=== PATIENT | male | born 1985 | race African-American/Black ===

== ENCOUNTER 2017-12-12 23:02 | Emergency (ER) | payer MEDICAID ==
[~2017-12-12] VITALS: Ht 177.8 cm; Wt 75.0 kg
[2017-12-13 08:51] VITALS: BP 94/55
== END 2017-12-13 08:51 | disposition home or self-care (01) ==
LOC: ER 23:02
DX: S90.112A Contusion of left great toe without damage to nail, initial encounter (principal); E11.9 Type 2 diabetes mellitus without complications; W22.8XXA Striking against or struck by other objects, initial encounter; Y93.9 Activity, unspecified; Y92.9 Unspecified place or not applicable
CPT/HCPCS: 73630; 99284

== ENCOUNTER 2018-03-24 15:54 | Emergency (ER) | payer MEDICAID ==
[~2018-03-24] VITALS: Ht 175.3 cm; Wt 75.0 kg
[2018-03-24] MEDS ORDERED: ONDANSETRON HCL 4MG/2ML INJ IV STA (16:37)
[2018-03-24] MEDS ORDERED: SODIUM CHLORIDE 0.9% 1,000 ML IV ONE (16:37)
[2018-03-24 17:07] LABS: BASOPHILS % 0.4 % (0.0-2.0); EOSINOPHILS % 0.6 % (0.0-5.0); HEMATOCRIT. 43.4 % (42.0-52.0); HEMOGLOBIN. 14.9 g/dL (14.0-18.0); LYMPHOCYTES % 36.1 % (20.0-50.0); MEAN CORPUSCULAR HEMOGLOBIN 29.4 pg (28.0-32.0); MEAN CORPUSCULAR VOLUME 85.6 fL (80.0-94.0); MEAN PLATELET VOLUME 9.3 fl (7.4-10.4); MONOCYTES % 9.6 % (2.0-8.0); NEUTROPHILS % 53.3 % (40.0-76.0); PLATELET 188 x1000/uL (130-400); RED BLOOD CELL COUNT 5.06 mill/uL (4.7-6.1); RED CELL DISTRIBUTION WIDTH 13.6 % (11.6-14.6)
[2018-03-24 17:11] LABS: CHLORIDE 103 mEq/L (98-107)
[2018-03-24 17:17] LABS: ETHANOL BLOOD < 10 mg/dL
[2018-03-24 17:20] LABS: AMMONIA 20 uMol/L (<32)
[2018-03-24 17:26] LABS: CREATINE KINASE 213 IU/L (39-308)
[2018-03-24 18:56] LABS: CLARITY URINE CLEAR (CLEAR); COLOR URINE YELLOW (YELLOW); KETONES URINE 3+ (NEGATIVE); LEUKOCYTE ESTERASE URINE NEGATIVE (NEGATIVE); NITRITE URINE NEGATIVE (NEGATIVE); OCCULT BLOOD URINE NEGATIVE (NEGATIVE); PH URINE 5.5 (4.5-8.0); PROTEIN URINE 2+ (NEGATIVE); SPECIFIC GRAVITY URINE 1.047 (1.005-1.030); UROBILINOGEN URINE 0.2 E.U./dL (0.2-1.0)
[2018-03-24 19:10] LABS: *AMPHETAMINES SCREEN URINE NEGATIVE (NEGATIVE); *BARBITURATES SCREEN URINE NEGATIVE (NEGATIVE); *BENZODIAZEPINES SCREEN URINE NEGATIVE (NEGATIVE); *COCAINE SCREEN URINE NEGATIVE (NEGATIVE); CANNABINOID URINE SCREEN NEGATIVE (NEGATIVE); METHADONE URINE SCREEN NEGATIVE (NEGATIVE); OPIATES URINE SCREEN NEGATIVE (NEGATIVE); PHENCYCLIDINE URINE SCREEN NEGATIVE (NEGATIVE)
[2018-03-24 22:30] VITALS: BP 106/58
== END 2018-03-24 22:31 | disposition home or self-care (01) ==
LOC: ER 15:54
DX: R11.2 Nausea with vomiting, unspecified (principal); R53.1 Weakness; E11.9 Type 2 diabetes mellitus without complications; T43.201A Poisoning by unspecified antidepressants, accidental (unintentional), initial encounter; X58.XXXA Exposure to other specified factors, initial encounter; Z98.890 Other specified postprocedural states
CPT/HCPCS: 36415; 80053; 80305; 80307; 80329; 81003; 82140; 82550; 82962; 83690; 84443; 85025; 93005; 96361; 96374; 99285; G0482; J2405; J7030